=== PATIENT | female | born 1975 | race Caucasian/White ===

== ENCOUNTER 2020-07-28 04:17 | Emergency (ER) | payer BC ==
[~2020-07-28] VITALS: Ht 170.2 cm; Wt 90.9 kg
[2020-07-28] MEDS ORDERED: IV NORMAL SALINE 1000ML BAG 1,000 ML IV SCH (04:30)
--- NOTE | 2020-07-28 04:45 | EKG ---
[facility] [address] [place] [address] Test Date: 2020-07-28 Test Time: 04:38:46 Pat Name: ANABEL GARCIA Department: Room: Gender: F [employer]: : 1975 Requested By: BRUNO LIM Order Number: [id number] Reading MD: Jan Stephenson Measurements Intervals [place] Rate: 96 P: 58 CO: 114 QRS: 43 QRSD: 82 T: 61 QT: 360 QTc: 456 Interpretive Statements SINUS RHYTHM NORMAL ECG RI6.02 No previous ECG available for comparison Electronically Signed On 07-28-2020 14:39:32 PANTOGRAPH I ENGRAVER by Jan Stephenson
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
--- NOTE | 2020-07-28 05:36 | RAD ---
XR CHEST 1V 07/28/2020 5:11 AM INDICATION: Gabapentin overdose COMPARISON: None available TECHNIQUE: Portable frontal view of the chest is provided. FINDINGS: The cardiomediastinal silhouette is within normal limits. Lungs are clear. There are no significant pleural effusions. There is no pulmonary vascular congestion. No pneumothora x. No suspicious osseous abnormality. IMPRESSION: There is no acute cardiopulmonary process. Electronically signed by: Tracy Kimball MD (07/28/2020 5:34 AM) [facility]
[2020-07-28 06:16] LABS: BASO % 1 % (0-3); EOS # 0.1 x10^3/uL (0.0-0.7); EOS % 1 % (0-3); HEMATOCRIT 43.6 % (36.0-47.0); HEMOGLOBIN 14.5 g/dL (12.0-15.5); LYMPH # 1.5 x10^3/uL (1.0-4.8); LYMPH % 15 % (24-48); MEAN CORPUSCULAR HEMOGLOBIN 29 pg (25-35); MEAN CORPUSCULAR HGB CONC 33 g/dL (31-37); MEAN CORPUSCULAR VOLUME 86 fL (79-100); MONO # 0.6 x10^3/uL (0.0-1.1); MONO % 6 % (0-9); NEUT # 7.9 x10^3/uL (1.8-7.7); NEUT % 79 % (31-73); PLATELET COUNT 219 x10^3/uL (140-400); RED BLOOD COUNT 5.11 x10^6/uL (3.50-5.40)
[2020-07-28 06:28] LABS: CALCIUM 8.7 mg/dL (8.5-10.1); CREATININE 0.7 mg/dL (0.6-1.0); GFR 90.9; POTASSIUM 3.9 mmol/L (3.5-5.1)
[2020-07-28 06:31] LABS: PREG TEST PT QUAL NEGATIVE (NEG)
[2020-07-28 06:33] LABS: ACETAMIN < 2 mcg/ml (10-30); ALBUMIN 3.5 g/dL (3.4-5.0); DIRECT BILIRUBIN 0.1 mg/dL (0.0-0.2); ETHANOL < 10 mg/dL (0-10); MAGNESIUM 1.9 mg/dL (1.8-2.4); SALIC < 2.8 mg/dL (2.8-20.0); TOTAL BILIRUBIN 0.4 mg/dL (0.2-1.0); TOTAL PROTEIN 7.2 g/dL (6.4-8.2)
[2020-07-28 07:55] LABS: BILIRUBIN,URINE NEGATIVE (NEG); CLARITY,URINE CLEAR; COLOR,URINE AMBER; NITRITE,URINE POSITIVE (NEG); PH,URINE 5.5 (<5.0-8.0); PROTEIN,URINE NEGATIVE (NEG-TRACE)
[2020-07-28 08:13] LABS: BARBITURATES NEG (NEG); BENZODIAZEPINES NEG (NEG); CANNABINOIDS NEG (NEG); COCAINE NEG (NEG); METHADONE NEG (NEG); OPIATES NEG (NEG); PHENCYCLIDINE NEG (NEG)
[2020-07-28 08:16] LABS: AMPHETAMINE/METHAMPHETAMINE POS (NEG)
[2020-07-28 08:32] LABS: BACTERIA,URINE MANY /HPF (0-FEW)
[2020-07-28 08:33] LABS: RBC,URINE OCC /HPF (0-2)
[2020-07-28 15:30] VITALS: BP 96/63
== END 2020-07-28 16:14 | disposition home or self-care (01) ==
LOC: ER 04:17
DX: T42.6X2A Poisoning by other antiepileptic and sedative-hypnotic drugs, intentional self-harm, initial encounter (principal); R45.851 Suicidal ideations; F15.10 Other stimulant abuse, uncomplicated; Y92.89 Other specified places as the place of occurrence of the external cause
CPT/HCPCS: 36415; 71045; 80048; 80076; 80307; 80329; 81001; 81025; 83735; 84703; 85025; 87086; 93005; 96360; 99285; G0480; J7030